=== PATIENT | female | born 1945 | race African-American/Black ===

== ENCOUNTER 2019-01-23 13:25 | Emergency (ER) | payer OTHER ==
[~2019-01-23] VITALS: Ht 152.4 cm; Wt 50.0 kg
[2019-01-23] MEDS ORDERED: IPRATROPIUM BROMIDE (0.02%) 0.5MG/2.5ML NEB HHN STA (13:40)
[2019-01-23] MEDS ORDERED: ALBUTEROL (0.083%) 2.5MG/3ML NEB HHN STA ×2 (13:40→18:25)
[2019-01-23] MEDS ORDERED: METHYLPREDNISOLONE SOD SUCC 125 MG/2 ML VIAL IV STA (13:40)
[2019-01-23 14:01] LABS: BASOPHILS % 0.8 % (0.0-2.0); EOSINOPHILS % 10.4 % (0.0-5.0); HEMATOCRIT. 37.7 % (36.0-48.0); HEMOGLOBIN. 12.9 g/dL (12.0-16.0); LYMPHOCYTES % 16.7 % (20.0-50.0); MEAN CORPUSCULAR HEMOGLOBIN 31.5 pg (28.0-32.0); MEAN CORPUSCULAR VOLUME 92.2 fL (81.0-99.0); MEAN PLATELET VOLUME 7.4 fl (7.4-10.4); MONOCYTES % 9.8 % (2.0-8.0); NEUTROPHILS % 62.3 % (40.0-76.0); PLATELET 195 x1000/uL (130-400); RED BLOOD CELL COUNT 4.09 mill/uL (4.2-5.4); RED CELL DISTRIBUTION WIDTH 13.3 % (11.6-14.6)
[2019-01-23 14:08] LABS: CHLORIDE 106 mEq/L (98-107)
[2019-01-23] MEDS ORDERED: MAGNESIUM 2 G PREMIX 50 ML IV NR (19:00)
[2019-01-23 20:55] VITALS: BP 156/98
== END 2019-01-23 21:00 | disposition short-term general hospital (02) ==
LOC: ER 13:59 → CANBEDREQ 21:59
DX: J44.1 Chronic obstructive pulmonary disease with (acute) exacerbation (principal); I10 Essential (primary) hypertension; E78.00 Pure hypercholesterolemia, unspecified; E87.6 Hypokalemia; R00.0 Tachycardia, unspecified; R79.89 Other specified abnormal findings of blood chemistry
CPT/HCPCS: 36415; 71045; 80053; 83880; 84484; 85025; 93005; 94640; 94644; 96365; 96375; 99285; J2930; J3475; J7611

== ENCOUNTER 2022-01-29 21:38 | Emergency (ER) | payer OTHER ==
[~2022-01-29] VITALS: Ht 162.6 cm; Wt 60.0 kg
[2022-01-29] MEDS ORDERED: IBUPROFEN 400MG TABLET PO ONE (22:30)
[2022-01-29 22:56] LABS: BASOPHILS % 0.7 % (0.0-2.0); EOSINOPHILS % 4.9 % (0.0-5.0); HEMATOCRIT. 34.4 % (36.0-48.0); HEMOGLOBIN. 11.9 g/dL (12.0-16.0); LYMPHOCYTES % 9.6 % (20.0-50.0); MEAN CORPUSCULAR HEMOGLOBIN 33.5 pg (28.0-32.0); MEAN CORPUSCULAR VOLUME 97.2 fL (81.0-99.0); MONOCYTES % 12.3 % (2.0-8.0); NEUTROPHILS % 72.5 % (40.0-76.0); PLATELET 179 x1000/uL (130-400); RED BLOOD CELL COUNT 3.54 mill/uL (4.2-5.4); RED CELL DISTRIBUTION WIDTH 12.6 % (11.6-14.6)
[2022-01-29 23:00] LABS: CHLORIDE 101 mEq/L (98-107)
[2022-01-30] MEDS ORDERED: IBUP-2028 MT (00:01)
[2022-01-30 00:26] VITALS: BP 134/76
== END 2022-01-30 00:28 | disposition home or self-care (01) ==
LOC: ER 21:38
DX: R25.2 Cramp and spasm (principal); M71.20 Synovial cyst of popliteal space [Baker], unspecified knee; M79.604 Pain in right leg; M79.605 Pain in left leg; J44.9 Chronic obstructive pulmonary disease, unspecified; E78.00 Pure hypercholesterolemia, unspecified; I10 Essential (primary) hypertension
CPT/HCPCS: 36415; 80053; 83735; 85025; 93970; 99284

== ENCOUNTER 2023-08-19 17:07 | Emergency (ER) | payer OTHER ==
[~2023-08-19] VITALS: Ht 160 cm; Wt 53.0 kg
[~2023-08-19 17:07] MED LIST: IBUP-2028 MT
[2023-08-19] MEDS ORDERED: PREDNISONE 20MG TABLET PO STA (17:12)
[2023-08-19] MEDS ORDERED: IPRATROPIUM BROMIDE (0.02%) 0.5MG/2.5ML NEB HHN STA (17:12)
[2023-08-19] MEDS ORDERED: PREDNISONE 20MG TABLET PO NR (17:12)
[2023-08-19] MEDS ORDERED: ALBUTEROL (0.083%) 2.5MG/3ML NEB HHN STA (17:12)
[2023-08-19] MEDS ORDERED: prilosec (17:16)
[2023-08-19] MEDS ORDERED: atenolol (17:16)
[2023-08-19] MEDS ORDERED: lisinopril (17:16)
[2023-08-19] MEDS ORDERED: norvasc (17:17)
[2023-08-19] MEDS ORDERED: lipitor (17:17)
[2023-08-19 21:47] LABS: HEMATOCRIT. 28.7 % (36.0-48.0); HEMOGLOBIN. 10.1 g/dL (12.0-16.0); MEAN CORPUSCULAR HEMOGLOBIN 34.3 pg (28.0-32.0); MEAN CORPUSCULAR HGB CONC 35.1 g/dL (31.0-37.0); MEAN CORPUSCULAR VOLUME 97.9 fL (81.0-99.0); MEAN PLATELET VOLUME 7.3 fl (7.4-10.4); PLATELET 160 x1000/uL (130-400); RED BLOOD CELL COUNT 2.94 mill/uL (4.2-5.4); RED CELL DISTRIBUTION WIDTH 12.7 % (11.6-14.6)
[2023-08-19 21:58] LABS: DIFFERENTIAL COMMENT 1
[2023-08-19 22:01] LABS: ALANINE AMINOTRANSFERASE 16 IU/L (10-49); ASPARTATE AMINOTRANSFERASE 32 IU/L (<34); BILIRUBIN TOTAL 0.4 mg/dL (0.1-1.0); CALCIUM 9.5 mg/dL (8.7-10.4); CARBON DIOXIDE 30 mEq/L (21-32); CHLORIDE 99 mEq/L (98-107); CREATININE 0.9 mg/dL (0.6-1.0); GLUCOSE 121 mg/dL (70-105); POTASSIUM 3.9 mEq/L (3.5-5.1); PROTEIN TOTAL 6.5 g/dL (6.0-8.3); SODIUM 136 mEq/L (136-145); UREA NITROGEN BLOOD 15 mg/dL (9-23)
[2023-08-19 22:10] LABS: TROPONIN I HIGH SENSITIVITY < 4 ng/L (3.0-34)
[2023-08-19 22:19] LABS: PLATELET ESTIMATE NORMAL
[2023-08-19 22:38] VITALS: PULSE 88; RESP 20; O2SAT 100
[2023-08-19] MEDS: IPRATROPIUM BROMIDE (0.02%) 0.5MG/2.5ML NEB HHN SCH ×2 (22:38→23:03)
[2023-08-19] MEDS: ALBUTEROL (0.083%) 2.5MG/3ML NEB HHN SCH ×2 (22:39→23:02)
[2023-08-19 22:53] VITALS: PULSE 89; RESP 20; O2SAT 100
[2023-08-20] MEDS ORDERED: ALBUTEROL (0.083%) 2.5MG/3ML NEB HHN ONE
[2023-08-20 00:02] VITALS: BP 152/85; PULSE 108; RESP 19; TEMP 98.4
== END 2023-08-20 01:18 | disposition short-term general hospital (02) ==
LOC: ER 17:07
DX: J44.9 Chronic obstructive pulmonary disease, unspecified (principal); R06.02 Shortness of breath; E78.00 Pure hypercholesterolemia, unspecified; I10 Essential (primary) hypertension
CPT/HCPCS: 99285; 71045; 80053; 85025; 84484; 36415; 94640; 93005; J7512

== ENCOUNTER 2023-10-11 02:07 | Inpatient (IN) | payer OTHER ==
[~2023-10-11] VITALS: Ht 160 cm; Wt 54.9 kg
[2023-10-11] VITALS (7 sets, daily range): PULSE 102–108; RESP 16–25; O2SAT 99–100
[~2023-10-11 02:07] MED LIST changes: +atenolol; +lipitor; +lisinopril; +norvasc; +prilosec
[2023-10-11] MEDS ORDERED: ALBUTEROL (0.083%) 2.5MG/3ML NEB HHN STA (02:27)
[2023-10-11] MEDS ORDERED: METHYLPREDNISOLONE SOD SUCC 125MG/2ML (ACT-O-VIAL) IV STA (02:27)
[2023-10-11] MEDS ORDERED: IPRATROPIUM BROMIDE (0.02%) 0.5MG/2.5ML NEB HHN STA (02:27)
[2023-10-11] MEDS ORDERED: ASPIRIN 81MG TABLET PO ONE (02:30)
[2023-10-11] MEDS ORDERED: MAGNESIUM 2 G PREMIX 50 ML IV ONE (02:30)
[2023-10-11 04:01] LABS: HEMATOCRIT. 28.8 % (36.0-48.0); HEMOGLOBIN. 9.8 g/dL (12.0-16.0); MEAN CORPUSCULAR HEMOGLOBIN 33.3 pg (28.0-32.0); MEAN PLATELET VOLUME 7.4 fl (7.4-10.4); PLATELET 207 x1000/uL (130-400); RED BLOOD CELL COUNT 2.94 mill/uL (4.2-5.4); RED CELL DISTRIBUTION WIDTH 13.9 % (11.6-14.6); WHITE BLOOD COUNT 15.1 x1000/uL (4.5-11.0)
[2023-10-11 04:15] LABS: DIFFERENTIAL COMMENT 1
[2023-10-11 04:21] LABS: ALANINE AMINOTRANSFERASE 12 IU/L (10-49); ALBUMIN 3.9 g/dL (3.2-4.8); ASPARTATE AMINOTRANSFERASE 25 IU/L (<34); BILIRUBIN TOTAL 0.7 mg/dL (0.1-1.0); CALCIUM 9.4 mg/dL (8.7-10.4); CARBON DIOXIDE 31 mEq/L (21-32); CHLORIDE 97 mEq/L (98-107); CREATININE 0.9 mg/dL (0.6-1.0); GLUCOSE 98 mg/dL (70-105); PROTEIN TOTAL 6.8 g/dL (6.0-8.3); SODIUM 134 mEq/L (136-145); UREA NITROGEN BLOOD 15 mg/dL (9-23)
[2023-10-11 04:25] LABS: TROPONIN I HIGH SENSITIVITY < 4 ng/L (3.0-34)
[2023-10-11 04:56] LABS: PLATELET ESTIMATE NORMAL
[2023-10-11] MEDS ORDERED: TRAMADOL 50MG TABLET PO PRN (08:30)
[2023-10-11] MEDS ORDERED: ONDANSETRON HCL 4MG/2ML INJ IV PRN (08:30)
[2023-10-11] MEDS ORDERED: GUAIFENESIN 200MG/10ML SUGAR FREE UDC PO PRN (08:30)
[2023-10-11] MEDS ORDERED: ACETAMINOPHEN 325MG TABLET PO PRN (08:30)
[2023-10-11] MEDS ORDERED: CLONIDINE 0.1MG TABLET PO PRN (08:30)
[2023-10-11] MEDS ORDERED: IPRATROPIUM/ALBUTEROL 0.5-3(2.5)MG/3ML NEB HHN PRN (08:30)
[2023-10-11] MEDS ORDERED: DOCUSATE SODIUM 100MG CAPSULE PO PRN (08:30)
[2023-10-11] MEDS: METHYLPREDNISOLONE SOD SUCC 125MG/2ML (ACT-O-VIAL) IV SCH ×3 (08:37→22:40)
[2023-10-11] MEDS: IPRATROPIUM/ALBUTEROL 0.5-3(2.5)MG/3ML NEB HHN SCH ×3 (08:51→23:43)
[2023-10-11] MEDS ORDERED: PIPERACILLIN/TAZO 3.375G/50ML 50 ML IV NR (09:00)
[2023-10-11] MEDS: ENOXAPARIN 40MG/0.4ML SYR SUBCUT SCH (09:00)
[2023-10-11 10:00] LABS: TROPONIN I HIGH SENSITIVITY < 4 ng/L (3.0-34)
[2023-10-11] MEDS: PIPERACILLIN/TAZOBACTAM 3.375 G in DEXTROSE 5% WATER 50 ML IV SCH ×2 (22:40→23:39)
[2023-10-12 02:25] VITALS: PULSE 105; RESP 18; O2SAT 99
[2023-10-12] MEDS: IPRATROPIUM/ALBUTEROL 0.5-3(2.5)MG/3ML NEB HHN SCH ×4 (02:25→20:30)
[2023-10-12] MEDS: PIPERACILLIN/TAZOBACTAM 3.375 G in DEXTROSE 5% WATER 50 ML IV SCH ×3 (03:04→22:54)
[2023-10-12] MEDS: METHYLPREDNISOLONE SOD SUCC 125MG/2ML (ACT-O-VIAL) IV SCH ×4 (03:09→20:26)
[2023-10-12 10:55] VITALS: PULSE 65; RESP 18; O2SAT 96
[2023-10-12] MEDS: ENOXAPARIN 40MG/0.4ML SYR SUBCUT SCH (11:15)
[2023-10-12] MEDS ORDERED: NALOXONE HCL 0.4MG/ML VIAL IV PRN (11:30)
[2023-10-12 12:00] VITALS: BP 122/86; PULSE 112; RESP 20; TEMP 97.4; TEMP 97.7
[2023-10-12 12:35] LABS: HEMATOCRIT. 29.3 % (36.0-48.0); HEMOGLOBIN. 10.1 g/dL (12.0-16.0); MEAN CORPUSCULAR HEMOGLOBIN 33.3 pg (28.0-32.0); MEAN CORPUSCULAR HGB CONC 34.5 g/dL (31.0-37.0); MEAN CORPUSCULAR VOLUME 96.6 fL (81.0-99.0); MEAN PLATELET VOLUME 7.6 fl (7.4-10.4); PLATELET 204 x1000/uL (130-400); RED BLOOD CELL COUNT 3.03 mill/uL (4.2-5.4); RED CELL DISTRIBUTION WIDTH 13.8 % (11.6-14.6); WHITE BLOOD COUNT 14.1 x1000/uL (4.5-11.0)
[2023-10-12 12:51] LABS: DIFFERENTIAL COMMENT 1
[2023-10-12 13:16] LABS: ALANINE AMINOTRANSFERASE 13 IU/L (10-49); ALBUMIN 4.2 g/dL (3.2-4.8); ASPARTATE AMINOTRANSFERASE 22 IU/L (<34); BILIRUBIN TOTAL 0.5 mg/dL (0.1-1.0); CALCIUM 9.4 mg/dL (8.7-10.4); CARBON DIOXIDE 31 mEq/L (21-32); CHLORIDE 95 mEq/L (98-107); CHOLESTEROL 175 mg/dL (<200); CREATININE 0.8 mg/dL (0.6-1.0); GLUCOSE 129 mg/dL (70-105); HDL CHOLESTEROL 79 mg/dL (>65); LDL CHOLESTEROL 63 mg/dL (5-100); POTASSIUM 3.8 mEq/L (3.5-5.1); PROTEIN TOTAL 7.3 g/dL (6.0-8.3); SODIUM 136 mEq/L (136-145); TRIGLYCERIDE 79 mg/dL (0-150); UREA NITROGEN BLOOD 14 mg/dL (9-23)
[2023-10-12 13:49] LABS: PLATELET ESTIMATE NORMAL
[2023-10-12] MEDS ORDERED: PIPERACILLIN/TAZO 3.375G/50ML 50 ML IV SCH (14:00)
[2023-10-12] MEDS ORDERED: MONT-39 MT (15:53)
[2023-10-12] MEDS ORDERED: ATOR20TA65 MT (15:53)
[2023-10-12] MEDS ORDERED: CITA20SO2 PO (15:53)
[2023-10-12] MEDS ORDERED: OMEP20CA14 MT (15:53)
[2023-10-12] MEDS ORDERED: AMLO10TA80 MT (15:53)
[2023-10-12] MEDS ORDERED: ATEN-42 MT (15:53)
[2023-10-12] MEDS ORDERED: FLUT1BLS10 IH (15:53)
[2023-10-12] MEDS ORDERED: LISI40TA13 MT (15:53)
[2023-10-12] MEDS ORDERED: ALEN70TA79 MT (15:53)
[2023-10-12] MEDS ORDERED: ALBU6.7H15 INH (15:53)
[2023-10-12 16:00] VITALS: BP 151/85; PULSE 100; RESP 20; TEMP 97.5
[2023-10-12 20:00] VITALS: BP 136/88; PULSE 101; RESP 18; TEMP 98.2
[2023-10-12 20:48] VITALS: PULSE 100; RESP 20; O2SAT 97
[2023-10-13] VITALS (9 sets, daily range): BP systolic 129–146; BP diastolic 75–93; PULSE 95–112; RESP 18–22; TEMP 97.2–97.7; O2SAT 95–100
[2023-10-13] MEDS: IPRATROPIUM/ALBUTEROL 0.5-3(2.5)MG/3ML NEB HHN SCH ×3 (02:17→17:04)
[2023-10-13] MEDS: METHYLPREDNISOLONE SOD SUCC 125MG/2ML (ACT-O-VIAL) IV SCH ×3 (02:41→14:11)
[2023-10-13] MEDS: PIPERACILLIN/TAZOBACTAM 3.375 G in DEXTROSE 5% WATER 50 ML IV SCH ×2 (05:47→14:11)
[2023-10-13] MEDS ORDERED: PIPERACILLIN/TAZOBACTAM 3.375 G in DEXTROSE 5% WATER 50 ML IV SCH (06:00)
[2023-10-13] MEDS: ENOXAPARIN 40MG/0.4ML SYR SUBCUT SCH (08:29)
== END 2023-10-13 17:30 | disposition home or self-care (01) | DRG 189 ==
LOC: ER 02:14 → 7WST 04:17 → UNDOADMIN 04:17 → MICUSO 04:17 → EDBEDREQSVC 16:55 → 7WST 10-12 09:00 → MICUSO 10-12 09:00 → UNDODISIN 10-12 09:53
PROVIDERS: ADMIT Hospitalist; ATTEND Hospitalist
PROC: 5A09357 Assistance with Respiratory Ventilation, Less than 24 Consecutive Hours, Continuous Positive Airway Pressure (ICD-10-PCS; principal; 2023-10-11)
DX: J96.01 Acute respiratory failure with hypoxia (principal); J45.901 Unspecified asthma with (acute) exacerbation; J67.9 Hypersensitivity pneumonitis due to unspecified organic dust; D72.829 Elevated white blood cell count, unspecified; Z20.822 Contact with and (suspected) exposure to COVID-19; E78.5 Hyperlipidemia, unspecified; I10 Essential (primary) hypertension
CPT/HCPCS: 36415; 71045; 80053; 80061; 83880; 84484; 85025; 87426; 87804; 93005; 93970; 94640; 94660; 99291; J1650; J2543; J2930; J3475; J7060